=== PATIENT | male | born 1955 | race Caucasian/White ===

== ENCOUNTER 2016-05-04 08:42 | Day surgery (SDC) | payer OTHER ==
[2016-04-29 13:30] VITALS: BMI 29.8
[2016-05-04] MEDS ORDERED: MIDAZOLAM HCL 2 MG/2 ML SINGLE DOSE VIAL ONE ×2 (08:49→09:49)
[2016-05-04] MEDS ORDERED: LACTATED RINGERS SOLUTION 1,000 ML IV SCH (11:00)
[2016-05-04] MEDS ORDERED: ONDANSETRON 4 MG/2 ML VIAL IVPUSH PRN (11:13)
[2016-05-04] MEDS ORDERED: oxyCODONE HCL 5 MG TABLET PO PRN ×2 (11:14)
[2016-05-04 11:43] VITALS: PULSE 58; TEMP 98.7
[2016-05-04 12:08] VITALS: BP 122/68
--- NOTE | 2016-05-05 09:26 | OP ---
DATE OF OPERATION: 05/04/2016 PREOPERATIVE DIAGNOSIS: Left wrist triangular fibrocartilage complex tear. POSTOPERATIVE DIAGNOSIS: 1. Left wrist central left triangular fibrocartilage complex tear. 2. Left partial scapholunate ligament tear and wrist synovitis. OPERATIVE PROCEDURE: Left wrist operative arthroscopy with debridement of triangular fibrocartilage complex and scapholunate ligament and wrist synovectomy. SURGEON: Tomasz Emmanuel MD ARTIFICIAL FLOWER MAKER: THERESA Breen INDICATIONS FOR PROCEDURE: The patient is a 61-year-old male with the above findings, indicated for operative treatment. The risks, benefits, and alternatives were discussed with the patient at length, and proper informed consent was obtained. PROCEDURE: After proper identification of the patient and the correct operative site, the patient was brought to the operating room and placed supine on the operating table with prominences well padded. General anesthesia was provided by the anesthesiologist. Intravenous antibiotics were given. Time-out procedure was performed. Left upper extremity was prepped and draped in the usual sterile fashion. Well-padded tourniquet was placed with a sterile prep. Esmarch bandage was used to exsanguinate the left upper extremity. Tourniquet inflated to 250 mmHg. Left upper extremity was placed into the traction tower with InLine Traction and all points of contact well padded. Stardard arthroscopy was performed in dorsal portals. A 3, 4, and 6U portal were used for this procedure. All portals were made with skin incision, only in blunt dissection under the joint capsule. A 2.7-mm gravity inflow arthroscope was used in conjunction with a 2.9-mm arthroscopic shaver, as well as an ArthroWand. Radial aspect of the wrist was first identified at the radiocarpal joint where there was mild synovitis, and this was debrided with mechanical shaver. Significant fraying and partial tearing of the scapholunate ligament was noted along its proximal and volar border. The dorsal ligament was intact. The ligament was debrided and found not to have any significant full-thickness tearing. There is no evidence of gross instability of the scapholunate ligament. The arthroscope was then brought ulnarly where fraying of the ulnar portion of the lunate was noted, and this was debrided. Lunotriquetral ligament was intact. Full-thickness tear of the triangular fibrocartilage complex was noted in its central portion, and this was debrided to a stable edge with mechanical shaver and ArthoWand. Mild fraying of the ulnar insertion was also noted, and this was debrided. Synovitis was noted in this area as well, and this was debrided. Volar radiocarpal ligaments were intact. Mid carpal joint was examined and found to have no instability of the scapholunate interval. Lunotriquetral ligament was also tight. Arthroscope was then removed from the wrist, and wounds were irrigated with saline and repaired with 5-0 nylon suture. Patient was placed into a sterile dressing and reversed from anesthesia and brought to recovery in stable condition. Alexis Dinh, the physiotherapist's assistant, was integral throughout this procedure. This procedure could not have been performed without a skilled operative physiotherapist's assistant. TOMASZ EMMANUEL M.D. TARAN/[id number]
== END 2016-05-04 12:16 | disposition home or self-care (01) ==
LOC: FASU 08:42
PROVIDERS: ATTEND Orthopaedic Surgery Hand Surgery
PROC: 0MQ64ZZ Repair Left Wrist Bursa and Ligament, Percutaneous Endoscopic Approach (ICD-10-PCS; principal; 2016-05-04 10:12)
DX: S63.592D Other specified sprain of left wrist, subsequent encounter (principal); S63.512D Sprain of carpal joint of left wrist, subsequent encounter; M65.9 Synovitis and tenosynovitis, unspecified; X58.XXXD Exposure to other specified factors, subsequent encounter
CPT/HCPCS: 94760